=== PATIENT | female | born 1940 | race Caucasian/White ===

== ENCOUNTER 2021-07-02 21:59 | Emergency (ER) | payer OTHER ==
[~2021-07-02] VITALS: Ht 154.9 cm; Wt 59.0 kg
[2021-07-02] MEDS ORDERED: CLARITIN10 MG PO (22:39)
[2021-07-02] MEDS ORDERED: LEVOTHYROXINE25 MCG PO (22:39)
[2021-07-02] MEDS ORDERED: SINGULAIR10 MG PO (22:39)
== END 2021-07-03 17:55 | disposition designated cancer center or children's hospital (05) ==
LOC: ER 21:59
DX: S42.254A Nondisplaced fracture of greater tuberosity of right humerus, initial encounter for closed fracture (principal); S42.214A Unspecified nondisplaced fracture of surgical neck of right humerus, initial encounter for closed fracture; W18.39XA Other fall on same level, initial encounter; Y93.89 Activity, other specified; Y92.59 Other trade areas as the place of occurrence of the external cause; Y99.8 Other external cause status